=== PATIENT | male | born 1970 | race Asian ===

== ENCOUNTER 2016-09-04 12:08 | Emergency (ER) | payer MEDICAID ==
[2016-09-04 14:52] VITALS: BP 102/61
[2016-09-04] MEDS ORDERED: TORADOL IM ONE (15:48)
--- NOTE | 2016-09-04 16:04 | Emergency Department Report ---
Entered by STANLEY PAEZ, acting as scribe for FE MONTERO PA. ED Extremity Problem HPI - General Chief complaint: Extremity Problem,Nontraumatic Stated complaint: GOUT Time Seen by Provider: 09/04/16 14:34 Source: patient Mode of arrival: Ambulatory Limitations: No Limitations - History of Present Illness Initial comments: 46 year old with PMHx gout presents to the ED for evaluation of right foot pain and swelling for 3 days. Patient reports pain is consistent with previous episodes of gout flare. He states his recent diet included red meat and sugar, which have triggered previous episodes. Patient also reports he is noncompliant with Colcrys 6 mg and out of Indemethacin. He reports episodes of gout typically improve with Toradol shot, Ibuprofen 800 mg, and steroids. PCP is Dr. Lui at [facility]. Complaint: joint paint Onset/Timin -: days(s) Location: right, other (foot) History of Same: Yes (gout) Radiation: none Severity scale (0 -10): 8 Quality: constant Consistency: constant Improves with: nothing Worsens with: weight bearing Associated Symptoms: denies: chest pain, shortness of breath, fever, rash - Related Data Previous Rx's Medication Instructions Recorded Last Taken Type Indomethacin 50 mg PO Q8H #30 capsule 09/04/16 Unknown Rx Allergies Allergy/AdvReac Type Severity Reaction Status Date / Time No Known Allergies Allergy Unverified 09/04/16 12:29 ED Review of Systems Comment: All other systems reviewed and negative Constitutional: denies: chills, fever Respiratory: denies: shortness of breath Cardiovascular: denies: chest pain Musculoskeletal: other (joint pain in right foot, swelling. No injury) Skin: denies: rash ED Past Medical Hx - Past Medical History Previous Medical History?: Yes Additional medical history: Gout - Surgical History Past Surgical History?: No - Social History Smoking Status: Never Smoker Substance Use Type: None - Medications Home Medications: Home Medications Medication Instructions Recorded Confirmed Last Taken Type Indomethacin 50 mg PO Q8H #30 capsule 09/04/16 Unknown Rx ED Physical Exam - General Limitations: No Limitations ED Course Vital Signs 09/04/16 09/04/16 12:29 14:51 Temperature 98.3 F 98.2 F Pulse Rate 76 68 Respiratory 16 16 Rate Blood Pressure 110/83 Blood Pressure 102/61 [Right] O2 Sat by Pulse 99 100 Oximetry ED Medical Decision Making - Medical Decision Making 46 year old male patient with PMHx gout presents today with right foot pain and swelling, no injury, for 3 days. Patient given Toradol IM and Solu-medrol IM. Discussed with patient importance of compliance with preventative medications to reduce frequency of gout exacerbation episodes and encouraged him to follow up with his primary care provider to disccuss starting prescription for Allopurinol or Colcrys. Patient verbalized understanding and agreement. Patient is in no acute distress at this time. He will be discharged home with Indomethacin 50 mg tid. He is encouraged to return to the emergency room for any worsening symptoms. ED Disposition Clinical Impression: Gout attack Qualifiers: Gout site: foot Gout etiology: unspecified cause Laterality: right Qualified Code(s): M10.9 - Gout, unspecified Clinical Impression: (Ruled Out): Gout Disposition: DISCHARGED TO HOME OR SELFCARE Is pt being admited?: No Does the pt Need Aspirin: No Condition: Stable Instructions: Acute Gouty Arthritis (ED), Self-Care Measures with a Chronic Disease (ED) Additional Instructions: Take medication as prescribed. Avoid dietary triggers including red meat, sugar, beer or wine, and cheese. Follow up with your primary care provider to discuss either starting Allopurinol or Colcrys prescription. Prescriptions: Indomethacin 50 mg PO Q8H #30 capsule Referrals: HARDIK LUI MD [Primary Care Provider] - 3-5 Days Forms: Work/School Release Form(ED) This documentation as recorded by the tangelaibeJEANNINE REBEKAH,accurately reflects the service I personally performed and the decisions made by ,FE MONTERO PA.
== END 2016-09-04 16:14 | disposition home or self-care (01) ==
LOC: ED 12:08
DX: M10.9 Gout, unspecified (principal)
CPT/HCPCS: 96372; 99282; J1885; J2920

== ENCOUNTER 2017-06-21 07:43 | Emergency (ER) | payer MEDICAID ==
[2017-06-21] MEDS ORDERED: DELTASONE PO ONE (11:37)
[2017-06-21] MEDS ORDERED: ULTRAM PO ONE (11:37)
--- NOTE | 2017-06-21 11:37 | Emergency Department Report ---
ED Lower Extremity HPI - General Chief Complaint: Pain General Stated Complaint: GOUT PAIN Time Seen by Provider: 06/21/17 11:25 Source: patient Mode of arrival: Ambulatory Limitations: No Limitations - History of Present Illness Initial Comments: This is a 46 y.o. male presents with gout flare to left foot and left elbow. Pain is 10/10 on pain scale. History of gout with occasional flares. He ate pizza at work with sausage and pork bites which he thinks triggered flare. He is out of indomethacin. Reports colcrys and allopurinol don't work to prevent flares and he stopped taking it. He is trying to control gout with diet. Reports indomethacin and prednisone usually controls flares. MD Complaint: foot injury (left foot pain and swelling from gout), other (left elbow swelling and pain from gout) -: Gradual Injury: Foot: Left (swelling with pain) Type of Injury: other (gout flare) Place: home Severity: severe Severity scale (0 -10): 10 Improves With: nothing Worsens With: weight bearing, movement Associated Symptoms: able to partially bear weight (left foot) Treatments Prior to Arrival: NSAIDS - Related Data Previous Rx's Medication Instructions Recorded Last Taken Type Indomethacin 50 mg PO Q8H #30 capsule 09/04/16 Unknown Rx Indomethacin 50 mg PO Q8H #30 capsule 06/21/17 Unknown Rx Prednisone [predniSONE 10 mg 10 mg PO .TAPER #1 tab.ds.pk 06/21/17 Unknown Rx (6-Day Pack, 21 Tabs)] Allergies Allergy/AdvReac Type Severity Reaction Status Date / Time No Known Allergies Allergy Unverified 09/04/16 12:29 ED Review of Systems ROS: Stated complaint: GOUT PAIN Other details as noted in HPI Constitutional: see HPI. denies: chills, diaphoresis, fever, malaise, weakness Respiratory: denies: cough, shortness of breath, wheezing Cardiovascular: denies: chest pain, palpitations Gastrointestinal: denies: abdominal pain, nausea, diarrhea Musculoskeletal: joint swelling (left ) Neurological: denies: headache, weakness, paresthesias ED Past Medical Hx - Past Medical History Previous Medical History?: Yes Additional medical history: Gout - Surgical History Past Surgical History?: No - Social History Smoking Status: Never Smoker Substance Use Type: Non Opiate Pain, Prescribed - Medications Home Medications: Home Medications Medication Instructions Recorded Confirmed Last Taken Type Indomethacin 50 mg PO Q8H #30 capsule 09/04/16 Unknown Rx Indomethacin 50 mg PO Q8H #30 capsule 06/21/17 Unknown Rx Prednisone [predniSONE 10 mg 10 mg PO .TAPER #1 tab.ds.pk 06/21/17 Unknown Rx (6-Day Pack, 21 Tabs)] ED Physical Exam - General Limitations: No Limitations General appearance: alert, in no apparent distress - Respiratory Respiratory exam: Present: normal lung sounds bilaterally. Absent: respiratory distress - Cardiovascular Cardiovascular Exam: Present: regular rate, normal rhythm. Absent: systolic murmur, diastolic murmur, rubs, gallop - GI/Abdominal GI/Abdominal exam: Present: soft, normal bowel sounds - Expanded Upper Extremity Exam Left Shoulder Exam: Present: normal inspection, full ROM. Absent: tenderness, swelling, abrasion, laceration, ecchymosis, deformity, crepidus Upper Arm exam: Present: normal inspection, full ROM. Absent: tenderness, swelling, abrasion, laceration, ecchymosis, deformity, crepidus, dislocation, erythema Elbow exam: Present: tenderness, swelling (left, mild swelling noted on olecranon 1 cm, tender, nonerythematous, without warmth). Absent: abrasion, laceration, ecchymosis, crepidus, dislocation, erythema Forearm Wrist exam: Present: normal inspection, full ROM. Absent: tenderness, swelling, ecchymosis, deformity Hand Wrist exam: Present: normal inspection, full ROM. Absent: tenderness, swelling, abrasion, laceration, ecchymosis, deformity, crepidus, erythema Neuro motor exam: Present: wrist extension intact, thumb opposition intact, thumb IP flexion intact Neurosensory exam: Present: radial nerve intact, ulnar nerve intact Vascular: Present: normal capillary refill - Expanded Lower Extremity Exam Left Hip exam: Present: normal inspection, full ROM. Absent: tenderness, swelling, abrasion, laceration, ecchymosis, deformity, crepidus, dislocation, erythema Upper Leg exam: Present: normal inspection, full ROM. Absent: tenderness, swelling, abrasion, laceration, ecchymosis, deformity Knee exam: Present: normal inspection, full ROM. Absent: tenderness, swelling, abrasion, laceration, ecchymosis, deformity, crepidus, dislocation, erythema Lower Leg exam: Present: normal inspection, full ROM. Absent: tenderness, swelling, abrasion, laceration, ecchymosis, deformity, crepidus, dislocation, erythema Ankle exam: Present: normal inspection Foot/Toe exam: Present: full ROM, tenderness, swelling (mild swelling, erythmatous over 1st MTP joint), erythema Neuro vascular tendon exam: Present: no vascular compromise Gait: Positive: observed and limited by pain - Neurological Exam Neurological exam: Present: alert, oriented X3 - Psychiatric Psychiatric exam: Present: normal affect, normal mood - Skin Skin exam: Present: warm, dry, intact, normal color ED Course Vital Signs 06/21/17 06/21/17 06/21/17 07:59 11:51 12:22 Temperature 97 F L Pulse Rate 74 81 Respiratory 20 18 Rate Blood Pressure 138/95 134/95 O2 Sat by Pulse 98 97 Oximetry 06/21/17 12:27 Temperature Pulse Rate Respiratory 18 Rate Blood Pressure O2 Sat by Pulse 99 Oximetry ED Lower Extremity MDM - Medical Decision Making 46 y.o. male presents with pain to left foot and ankle from gout flare. History of gout, noncompliant with medication. Discontinued colcys and allopurinol, states doesn't work for him. Refused labs, states Dr. Lui at [place] [facility] last month and Uric acid was 12. Given prednisone 40 mg and tramadol 50 mg po once. D/C with indomethaicin and prednisone. Discussed foods to avoid with high purine and trying Uloric. Follow-up with PCP. Critical care attestation.: If time is entered above; I have spent that time in minutes in the direct care of this critically ill patient, excluding procedure time. ED Disposition Clinical Impression: Gout attack Qualifiers: Gout site: foot Gout etiology: idiopathic Laterality: left Qualified Code(s): M10.072 - Idiopathic gout, left ankle and foot Gout of elbow Qualifiers: Gout etiology: idiopathic Chronicity: acute Laterality: left Qualified Code(s) : M10.022 - Idiopathic gout, left elbow Disposition: TO HOME OR SELFCARE Is pt being admited?: No Does the pt Need Aspirin: No Condition: Stable Instructions: Low Purine Diet (ED), Acute Gouty Arthritis (ED), Self-Care Measures with a Chronic Disease (ED) Additional Instructions: Avoid high purine foods such as beer, red meats, wild game, organ meats, shellfish. Dairy, coffee, vitamin C, and cherries products may help prevent attack. Avoid weight gain. Return to ER if pain and swelling is uncontrolled. Prescriptions: Indomethacin 50 mg PO Q8H #30 capsule Prednisone [predniSONE 10 mg (6-Day Pack, 21 Tabs)] 10 mg PO .TAPER #1 tab.ds.pk Referrals: PRIMARY CARE, [Primary Care Provider] - 3-5 Days Time of Disposition: 12:09 Print Language: [place]
[2017-06-21 12:29] VITALS: BP 134/95
== END 2017-06-21 12:30 | disposition home or self-care (01) ==
LOC: ED 07:43
DX: M10.072 Idiopathic gout, left ankle and foot (principal); M10.022 Idiopathic gout, left elbow
CPT/HCPCS: 99282; J7512